=== PATIENT | female | born 1940 | race Caucasian/White ===

== ENCOUNTER 2016-06-10 13:57 | Outpatient (CLI) | payer MEDICARE, OTHER ==
[2015-09-03 06:37] VITALS: BP 110/70
--- NOTE | 2016-06-11 09:39 | OP Clinic Progress Note ---
REFERRING PHYSICIAN: Dr. Edu Coy REASON FOR VISIT: Marlene has had extensive workup with the chronic cough. It is mostly a daytime that does not seem to bother her at night. She has multiple other issues and on medications and has some degree of dementia. She is with her daughter today. We looked at her larynx with a flexible fiberoptic laryngoscope and the pachydermia laryngis, which is sometimes is suggestive of chronic reflux, looks about the same. Overall, there is no obvious danger in her larynx, hypopharynx , or supraglottic area. Symptomatically, when the dose of Elavil was increased from 10 mg to 25 mg, there has been a noticeable and a pleasant improvement in the degree of cough. There is overall less cough by the patient's history and by her daughter's acknowledgement. Another issue is that she may be taking anti-dementia medication from her neurologist. The metabolism of this may make the amount of medication that she would be taking difficult to evaluate. PLAN: I think from a clinical point of view it is fair to assume, in order to go forward, that the Elavil at 25 mg a day has been of benefit. She still takes it at night. She feels that taking it during the day there may be some increased dryness in her throat. The patient and her daughter accept as a decision for them to make whether to eliminate the Elavil by choosing to reduce the Elavil to 3 times a week and then twice a week and then to stop it or continue to take it. They feel like they would like to resume it if the cough seems to return. Most of these decisions and pathways are based upon her symptoms. The cough and balancing this off with the estimated improvement in cognition by the medications given by her neurologist and in addition, seeing whether she has some abdominal cramping that may be associated with the cognitive medication. The patient is welcome to return at any time. I am happy to review how to think about this. The standing diagnosis would be the cough is a neurogenic cough that has been improved with 25 mg of Elavil per day. This perspective can be altered in the amount of medication taken, and again, this is going to be balanced against the impression of whether it is better to stop the Elavil and begin taking the cognitive medication given by the neurologist. COMMENT: The patient is given an open prescription for Elavil 25 mg a day to be used with her and her daughter's discretion and the advise from Dr. Coy, in addition from the neurologist. cc: Dr. Edu QIU
== END 2016-06-10 14:00 ==
LOC: ENT 13:57
PROVIDERS: ATTEND Otolaryngology
DX: R05 Cough (principal)
CPT/HCPCS: 31575; G0463

== ENCOUNTER 2016-09-30 10:28 | Outpatient (CLI) | payer MEDICARE, OTHER ==
[2015-09-03 06:37] VITALS: BP 110/70
[2016-09-30 11:24] LABS: eGFR (African) > 60; eGFR (Non-African) > 60
== END 2016-09-30 10:30 ==
LOC: LAB 10:28
PROVIDERS: ATTEND Family Medicine
DX: I10 Essential (primary) hypertension (principal); Z86.39 Personal history of other endocrine, nutritional and metabolic disease
CPT/HCPCS: 36415; 80053; 80061

== ENCOUNTER 2017-01-18 13:31 | Outpatient (CLI) | payer MEDICARE, OTHER ==
[2015-09-03 06:37] VITALS: BP 110/70
[2017-01-18] MEDS ORDERED: ALBUTEROL SULFATE 2.5 MG/3 ML AMPUL.NEB NEB ONE (13:50)
[2017-01-18 14:44] LABS: ABG BASE EXCESS 5.4 (-2 - +2); ABG PH 7.49 (7.35-7.45)
--- NOTE | 2017-01-18 15:01 | Diagnostic Imaging Report ---
SUNITHA SIMMONS [facility] [address] [facility], [facility] [address] Report Submission Date: Jan 18, 2017 2:27:58 PM CDT Patient Study Name: ZENON OBRIEN Date: Jan 18, 2017 1:37:13 PM CDT Modality Type: CR Gender: F Description: CHEST : 36 Institution: [facility] Physician: SUNITHA SIMMONS Examination: PA and lateral chest. History: Evaluate lung ha. Comparison exam: None available Findings: PA lateral chest demonstrate a normal cardiac silhouette. Tortuosity of the thoracic aorta. Parenchymal fullness involving the right inferior hilum. No peripheral consolidation. No blunting of the costophrenic margins. Presumed granuloma left mid to lower lung. Osseous structures are appropriate for age. Impression: Right hilar fullness and left lower lung granuloma. Correlation with older studies recommended when available. Electronically signed on Jan 18, 2017 2:27:58 PM CDT by: Avery QIU
== END 2017-01-18 13:32 ==
LOC: RT 13:31
PROVIDERS: ATTEND Family Medicine
DX: J45.909 Unspecified asthma, uncomplicated (principal)
CPT/HCPCS: 36600; 71020; 82803; 94060

== ENCOUNTER 2017-01-29 13:38 | Outpatient (CLI) | payer MEDICARE, OTHER ==
[2015-09-03 06:37] VITALS: BP 110/70
[2017-01-29 14:24] LABS: eGFR (African) > 60; eGFR (Non-African) > 60
== END 2017-01-29 13:40 ==
LOC: LAB 13:38
PROVIDERS: ATTEND Family Medicine
DX: R25.2 Cramp and spasm (principal)
CPT/HCPCS: 36415; 80053

== ENCOUNTER 2017-02-11 11:06 | Outpatient (CLI) | payer MEDICARE, OTHER ==
[2015-09-03 06:37] VITALS: BP 110/70
== END 2017-02-11 11:07 ==
LOC: LAB 11:06
PROVIDERS: ATTEND Physician Assistant
DX: R30.0 Dysuria (principal)
CPT/HCPCS: 87086

== ENCOUNTER 2017-02-23 07:56 | Outpatient (CLI) | payer MEDICARE, OTHER ==
[2015-09-03 06:37] VITALS: BP 110/70
[2017-02-23 08:14] LABS: BASOPHILS % 0.7 (0.0-1.5); MEAN CORPUSCULAR HEMOGLOBIN 32.6 pg (28.0-34.0); MEAN CORPUSCULAR VOLUME 88.2 fl (80.0-100.0); MONOCYTES % 6.1 % (0.0-11.0)
[2017-02-23 08:54] LABS: eGFR (African) > 60; eGFR (Non-African) > 60
--- NOTE | 2017-02-23 14:21 | Diagnostic Imaging Report ---
SUNITHA SIMMONS [facility] [address] [facility].[address] [address] Report Submission Date: Feb 23, 2017 8:51:56 AM CDT Patient Study Name: ZENON OBRIEN Date: Feb 23, 2017 8:14:49 AM CDT Modality Type: US Gender: F Description: US ABD LIMITED : 36 Institution: [facility] Physician: SUNITHA SIMMONS Examination: Ultrasound gallbladder History: Epigastric discomfort Findings: No gallbladder visualized. Common bile duct measures 6.5 mm. No intrahepatic biliary dilation. Liver demonstrates normal homogeneous echogenicity. No mass or cyst. Normal flow on color analysis. Normal Doppler waveforms. Right kidney measures 9.9 cm in length. No cortical mass or cyst. No hydronephrosis. Pancreatic region without gross irregularity. Impression: No gallbladder visualized. Mildly prominent common bile duct - though within normal limits for post cholecystectomy patient. Correlate with any pertinent medical history. Electronically signed on Feb 23, 2017 8:51:56 AM CDT by: Avery QIU
== END 2017-02-23 07:57 ==
LOC: RAD 07:56
PROVIDERS: ATTEND Family Medicine
DX: R10.11 Right upper quadrant pain (principal); R10.13 Epigastric pain
CPT/HCPCS: 36415; 76705; 80053; 83690; 85025

== ENCOUNTER 2017-03-19 11:52 | Outpatient (CLI) | payer MEDICARE, OTHER ==
[2015-09-03 06:37] VITALS: BP 110/70
--- NOTE | 2017-03-24 15:39 | CONSULTATION REPORT ---
REFERRING PHYSICIAN: Dr. Edu Coy CONSULTING PHYSICIAN: Maria Fernanda Ortega MD REASON FOR CONSULT: "To assess my asthma and obstructive sleep apnea." PROBLEM LIST: 1. Obstructive sleep apnea: Uses CPAP with 8 cm of water pressure nightly. 2. Asthma. 3. Osteoporosis. 4. Restless leg syndrome. 5. Dementia. 6. Significant alcohol use in the past. 7. Status post cholecystectomy. 8. Status post hysterectomy. 9. Status post appendectomy. 10. Status pos hernia repair. HISTORY OF PRESENT ILLNESS: This is a 77-year-old female accompanied by her daughter for an evaluation of her asthma and obstructive sleep apnea. Regarding her obstructive sleep apnea, patient likes using her CPAP. It is set at 8 cm of water. She uses it nightly for 7 to 8 hours. She feels that it definitely helps and she has no complaints of daytime sleepiness. Regarding her asthma, she has had it for quite a while, however, has never been hospitalized overnight. She has never been intubated and has never been in the intensive care unit. She is mainly not on prednisone. Last summer, she had only 1 significant exacerbation that required an ED visit and an outpatient prednisone taper. She controls her asthma mainly with inhalers, although states that she does not like the DuoNeb nebulizers and now uses Brovana and budesonide, which has been prescribed twice a day, although she admits she only uses it once a day. She has seen a high school drafting teacher in the past over at [place], [place], and she was referred to Pulmonary Rehab. She went only several times and then hurt her knee and chose never to return. She does not use tobacco and never has. She does have trouble with gastroesophageal reflux disease and definitely has postnasal drip. She does not have hemoptysis. She has not been on any antibiotics recently. There is no chest pain. No PND. No edema. Her weight has been stable. Appetite is good. Energy level fluctuates. She does, however, complain of an intermittent nonproductive cough and she denies any fever, chills, or sweats. Per her daughter, she has a significant alcohol history, however, that is in the past and she no longer drinks alcohol. She also has a new puppy at home which definitely has helped her activity level and her overall happiness and mental health. The puppy has not affected her asthma at all. MEDICATIONS: 1. Amlodipine 5 mg daily. 2. Methenamine hippurate 1 gram one-half tablet twice a day. 3. Sucralfate 1 gram at bedtime. 4. Loratadine 10 mg daily. 5. Montelukast 10 mg daily. 6. ASA 81 mg at bedtime. 7. Trazodone 100 mg at bedtime. 8. Namenda XR 14 mg at bedtime. 9. Donepezil 10 mg at bedtime. 10. Fosamax every Wednesday. 11. Ropinirole 2 mg at bedtime. 12. Citalopram 20 mg daily. 13. Brovana nebulizer daily. 14. Budesonide nebulizer daily. 15. Perfect Biotics. 16. Centrum Silver. 17. Calcium with D3 and K. 18. Albuterol inhaler p.r.n. 19. Benzonatate p.r.n. 20. Lomox for diarrhea p.r.n. ALLERGIES: Meperidine. SOCIAL HISTORY: She lives with her and came to the clinic with her daughter. FAMILY HISTORY: Please see [facility] intake form. REVIEW OF SYSTEMS: Please see HPI for pertinent review of systems, otherwise, please review the [facility] patient intake form. PHYSICAL EXAMINATION: GENERAL: This is a well-developed, well-nourished female in no acute distress speaking in full sentences. VITAL SIGNS: Height: 5 feet. Weight: 139 pounds. BP: 144/83, P: 68, R: 20, T: 96.9, oxygen saturation is 98% on room air. HEENT: Pupils are equal and reactive to light. Oropharynx is clear. No thrush. NECK: Supple. No lymphadenopathy. No axillary lymphadenopathy. LUNGS: Clear to auscultation. Normal excursion. CARDIAC: Rate and rhythm are regular. No murmur, rubs, or gallops. ABDOMEN: Soft and nontender. Positive bowel sounds. EXTREMITIES: No cyanosis, clubbing, or edema. NEUROLOGIC: Alert and oriented x3. Gait is normal. Grossly nonfocal. IMAGING: All imaging was independently reviewed by me personally. 1. Chest x-ray on 01-18-17: Left lung granuloma. Peribronchial cuffing. No infiltrates. Mild cardiomegaly. 2. Pulmonary function test on 01-18-17: FEC was 1.86 L, 83% of predicted; FEV1 was 1.66 L, 98% of predicted; FEV1/FVC was 0.78, no bronchial dilator response. Interpretation: Normal spirometry. LABORATORY VALUES: 1. ABG on 01-18-17: pH of 7.49, pCO2 of 38, pO2 of 70, oxygen saturation of 95% on room air. 2. Chemistries on 02-23-17: Sodium 135, potassium 3.7, chloride 101, carbon dioxide 26, BUN 17, creatinine 0.8, glucose 98, calcium 9.4, total bilirubin 0.4 , AST 19, ALT 26, alkaline phosphatase 55, total protein 6.8, albumin 3.8, lipase 189. 3. Hematology on 02-23-17: White blood cell count 5.9, hemoglobin 13.4, hematocrit 36.2, platelets 237,000. ASSESSMENT AND PLAN: PROBLEM #1: Asthma. Patient seems quite stable at this point from a pulmonary perspective. PFT's or actually spirometry are normal. Patient does use nebulizers, however, not as often as directed. She states she does not like them. I have explained that it would benefit her if she could do her Brovana and budesonide twice a day. PLAN: 1. Encourage use of nebulizers as described above. 2. I have encouraged if patient does not like Brovana to try to do budesonide twice a day. I have explained that budesonide is a steroid inhaler and would definitely be helpful for asthma. PROBLEM #2: Cough. Patient states this is not new. I reviewed the 3 most common causes of cough with the patient and her daughter including asthma, postnasal drip, and gastroesophageal reflux disease. PLAN: 1. Encourage the patient to use nebulizers as described above. 2. I discussed the use of a nasal spray, including a steroid nasal spray and possibly ipratropium and she prefers not to continue those at present. 3. Continue Loratadine for the postnasal drip. 4. Consider resuming pantoprazole. She has used that in the past for her gastroesophageal reflux disease. She will take this under advisement. PROBLEM #3: Pulmonary preventative medicine. Patient has already had her influenza vaccine and her Pneumonia vaccine both performed in 2017. PLAN: Return to clinic in 3 months. cc: Dr. Edu QIU
== END 2017-03-19 12:00 ==
LOC: PULMONARY 11:52
PROVIDERS: ATTEND Internal Medicine Pulmonary Disease
DX: J45.909 Unspecified asthma, uncomplicated (principal); R05 Cough; G47.33 Obstructive sleep apnea (adult) (pediatric)
CPT/HCPCS: 99213; G0463

== ENCOUNTER 2017-03-29 10:27 | Outpatient (CLI) | payer MEDICARE, OTHER ==
[2015-09-03 06:37] VITALS: BP 110/70
== END 2017-03-29 10:30 ==
LOC: LABRHC 10:27
PROVIDERS: ATTEND Physician Assistant
DX: R30.0 Dysuria (principal)
CPT/HCPCS: 87086

== ENCOUNTER 2017-04-15 10:32 | Emergency (ER) | payer MEDICARE, OTHER ==
--- NOTE | 2017-04-15 10:57 | ED Physician Documentation ---
General Adult - HISTORIAN Historian: patient - HPI Stated Complaint: wheezing Chief Complaint: General Adult Onset: hours Timing: still present Severity: moderate Further Comments: yes (Pt is a 77 yo female with cough, wheezing. Pt has hx asthma. Sx for 2 days. Pt has used home nebs.) - ROS CONST: no problems EYES/ENT: none CVS/RESP: cough, other (wheezing) GI/: none MS/SKIN/LYMPH: none - PAST HX Past History: asthma, other (GERD) Allergies/Adverse Reactions: Allergies Allergy/AdvReac Type Severity Reaction Status Date / Time meperidine HCl [From Demerol] AdvReac Nausea/Vomi Verified 04/15/17 11:01 ting Home Medications: Ambulatory Orders Medication Instructions Recorded Methenamine Hippurate 500 mg PO BID 08/31/15 Aspirin [Adult Low Dose Aspirin EC] 81 mg PO 2100 09/03/15 Memantine HCl [Namenda Xr] 14 mg PO DAILY 03/29/17 Pantoprazole Sodium [Protonix] 40 mg PO DAILY 04/15/17 - SOCIAL HX Smoking History: non-smoker - FAMILY HX Family History: No - VITAL SIGNS Vital Signs: Vital Signs Temp Pulse Resp BP Pulse Ox 110/70 09/03/15 07:58 - REVIEWED ASSESSMENTS Nursing Assessment Reviewed: Yes Vitals Reviewed: Yes Progress - Progress Progress: Duoneb HFN Pulmicort HFN Rx Azithromycin 250 mg. Take one daily for 4 days. Start on 04/16/17. Rx Robitussin AC (with codeine). Take 10 ml (two teaspoons) by mouth every 4 to 6 hrs as needed for cough. Prednisone 40 mg. Take one daily for 4 days. Start on 04/16/17. Continue home asthma medications. - EKG/XRAY/CT XRAY: chest (Stable examination. No acute pulmonary process.) General Adult Physical Exam - PHYSICAL EXAM GENERAL APPEARANCE: mild distress EENT: pharynx normal NECK: normal inspection, supple RESPIRATORY: no resp distress, wheezes, rhonchi, other (cough) CVS: reg rate & rhythm, heart sounds normal BACK: normal inspection, no CVA tenderness SKIN: warm/dry, normal color EXTREMITIES: non-tender, normal range of motion, no evidence of injury NEURO: oriented X3, motor nml, sensation nml Discharge Clincal Impression: bronchitis Referrals: Edu Coy MD [Primary Care Provider] - Condition: Good Disposition: 01 HOME, SELF-CARE Decision to Admit: NO Decision Time: 12:00
[2017-04-15] MEDS: IPRATROPIUM/ALBUTEROL SULFATE 3 ML AMPUL.NEB NEB ONE (11:02)
[2017-04-15] MEDS: BUDESONIDE 0.5MG/2ML AMPUL.NEB NEB ONE (11:10)
[2017-04-15] MEDS ORDERED: IPRATROPIUM/ALBUTEROL SULFATE 3 ML AMPUL.NEB NEB ONE (11:11)
[2017-04-15] MEDS ORDERED: BUDESONIDE 0.5MG/2ML AMPUL.NEB NEB ONE (11:12)
[2017-04-15 11:15] LABS: BASOPHILS % 0.7 (0.0-1.5); EOSINOPHILS % 1.6 % (0.0-6.8); MEAN CORPUSCULAR HEMOGLOBIN 32.1 pg (28.0-34.0); MONOCYTES % 6.4 % (0.0-11.0); NEUTROPHILS # 2.9 # k/uL (1.4-7.7)
[2017-04-15 11:20] LABS: eGFR (African) > 60; eGFR (Non-African) > 60
[2017-04-15] MEDS ORDERED: AZITHROMYCIN 250 MG TABLET PO ONE (11:39)
[2017-04-15] MEDS ORDERED: CODEINE PO ONE ×2 (11:40→11:41)
[2017-04-15] MEDS ORDERED: GUAIFENESIN PO ONE ×2 (11:40→11:41)
[2017-04-15] MEDS ORDERED: predniSONE 20 MG TABLET PO ONE (11:42)
[2017-04-15 12:11] VITALS: BP 136/79
--- NOTE | 2017-04-15 16:14 | Diagnostic Imaging Report ---
JOSH MARRERO [facility] [address] [facility] [address] [place] [address]. [id number] Report Submission Date: Apr 15, 2017 11:46:56 AM GLUE REEL OPERATOR Patient Study Name: ZENON OBRIEN Date: Apr 15, 2017 11:27:03 AM GLUE REEL OPERATOR Modality Type: CR Gender: F Description: CHEST : 36 Institution: [facility] Physician: JOSH MARRERO Examination: PA and lateral chest. History: Evaluate lung ha. Comparison exam: 18 January 2017 Findings: PA lateral chest demonstrate a normal cardiac and mediastinal silhouette. Stable right hilar fullness. No focal infiltrate. No blunting of the costophrenic margins. Stable left midlung granuloma. Osseous structures are appropriate for age. Impression: Stable examination. No acute pulmonary process. Electronically signed on Apr 15, 2017 11:46:56 AM GLUE REEL OPERATOR by: Avery QIU
== END 2017-04-15 12:05 | disposition home or self-care (01) ==
LOC: ED 10:32
DX: J40 Bronchitis, not specified as acute or chronic (principal)
CPT/HCPCS: 71020; 80053; 83880; 85025; J7626; 99283; S1016

== ENCOUNTER 2017-05-11 15:27 | Outpatient (CLI) | payer MEDICARE, OTHER | END 2017-05-11 15:30 | LOC: POD 15:27 | PROVIDERS: ATTEND Podiatrist | DX: L60.0 Ingrowing nail (principal); B35.1 Tinea unguium | CPT/HCPCS: G0463 ==

== ENCOUNTER 2017-06-04 13:22 | Outpatient (CLI) | payer MEDICARE, OTHER ==
--- NOTE | 2017-06-10 12:29 | OP Clinic Progress Note ---
PRIMARY CARE PROVIDER: Dr. Edu Coy CHIEF COMPLAINT: "I still am having trouble with cough and shortness of breath." SIGNIFICANT PROBLEM LIST: 1. Obstructive sleep apnea: Uses a CPAP with 8 cm of water pressure nightly. 2. Asthma. 3. Osteoporosis. 4. Restless leg syndrome. 5. Dementia. 6. Significant alcohol use in the past. 7. Status post cholecystectomy. 8. Status post hysterectomy. 9. Status post appendectomy. 10. Status post hernia repair. HISTORY OF PRESENT ILLNESS: Patient is here in the office with her . She claims that she became short of breath and went to the emergency department on April 15, 2017. They treated her with antibiotics and steroids. Patient had a follow up visit on April 19, 2017. On the followup, she saw a nurse practitioner who just added Mucinex to her regimen. Today, she is complaining of shortness of breath. Her cough is worse with sputum productive of thick, cloudy material. She did have a flu shot. Currently, no one is sick at home. She denies any flu symptoms such as fever, headaches, or myalgias and does freely admit she does not always use her nebulizers as instructed. ALLERGIES: Meperidine. MEDICATIONS: 1. Amlodipine 5 mg daily. 2. Methenamine hippurate 1 gram one-half tablet b.i.d. 3. Sucralfate 1 gram at bedtime. 4. Loratadine 10 mg daily. 5. Montelukast 10 mg daily. 6. ASA 81 mg daily. 7. Trazodone 100 mg at bedtime. 8. Namenda XR 14 mg at bedtime. 9. Donepezil 10 mg at bedtime. 10. Fosamax every Wednesday. 11. Ropinirole 2 mg at bedtime. 12. Citalopram 20 mg daily. 13. Budesonide 0.5 mg daily. 14. Albuterol inhaler p.r.n. 15. Benzonatate p.r.n. 16. DuoNeb: Although I am unclear if this is what she has at home. PHYSICAL EXAMINATION: Vital Signs: BP: 136/66, P: 69, R: 22, T: 96.7, oxygen saturation 97% on room air. Weight: 135 pounds. General: This is a well-developed, well-nourished female in no acute distress speaking in full sentences. HEENT: Pupils are equal and reactive. Oropharynx is clear. No thrush. Lungs: Good bilateral air excursion. No wheezes, rhonchi, or rales. No tactile fremitus. Cardiac: Rate and rhythm are regular. S1, S2 without S3 and S4. No murmurs, rubs, or gallops. Abdomen: Positive bowel sounds. Soft and nontender. Extremities: No cyanosis, clubbing, or edema. Neurologic: Alert and oriented x3. Grossly nonfocal exam. IMAGING: All imaging was independently reviewed by me personally. Chest x-ray on April 15, 2017. Clear lung ha. Left mid-lung granuloma. LABORATORIES: Lab done April 15, 2017, showed a hemoglobin of 13, hematocrit of 37, white blood cell count of 5, platelets 279,000. ASSESSMENT AND PLAN: PROBLEM #1: Asthma. Patient continues to have a mild exacerbation. Patient feels that she is not at her baseline at present, however, admits to not always using her nebulizer as directed and is unclear on the type of nebulizers used. Albeit, I think along with the budesonide, she is using DuoNeb. PLAN: 1. Prednisone taper: This will be a longer taper. This taper will occur slowly over 21 days. 2. Azithromycin 500 mg p.o. daily x3 days. 3. Arformoterol 15 mcg via nebulizer b.i.d. 4. Patient to bring all medicines in a bag on next visit. PROBLEM #2: Obstructive sleep apnea. Patient is very compliant with her CPAP and there are no issues at present. PLAN: Continue to use CPAP as directed. cc: Dr. Edu QIU
== END 2017-06-04 13:23 ==
LOC: PULMONARY 13:22
PROVIDERS: ATTEND Internal Medicine Pulmonary Disease
DX: J45.909 Unspecified asthma, uncomplicated (principal); G47.30 Sleep apnea, unspecified; M81.0 Age-related osteoporosis without current pathological fracture; G25.81 Restless legs syndrome; F03.90 Unspecified dementia, unspecified severity, without behavioral disturbance, psychotic disturbance, mood disturbance, and anxiety
CPT/HCPCS: 99214; G0463

== ENCOUNTER 2017-07-02 11:03 | Outpatient (CLI) | payer MEDICARE, OTHER ==
--- NOTE | 2017-07-13 10:38 | OP Clinic Progress Note ---
PRIMARY CARE PROVIDER: Dr. Edu Coy CHIEF COMPLAINT: "My breathing is improved, although I still have some thick sputum." SIGNIFICANT PROBLEM LIST: 1. Obstructive sleep apnea: CPAP at 8 cm of water pressure. 2. Asthma. 3. Osteoporosis. 4. Restless leg syndrome. 5. Dementia. 6. 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 7. Significant alcohol use in the past. 8. Status post cholecystectomy. 9. Status hysterectomy. 10. Status post appendectomy. 11. Status post hernia repair. SUBJECTIVE: Patient returns with her . She has taken the slow prednisone taper that prescribed a month ago and also completed her azithromycin. She feels that she is better, although still with occasional production of thick sputum. Thus far, the formoterol nebulizer that I ordered has not been delivered yet. Her also thinks that the patient's breathing is much better. She also had a sore tooth and was given amoxicillin and developed diarrhea, which she was very concerned about due to her past history of severe Clostridium difficile diarrhea. The diarrhea has resolved, and she has seen a dentist for her tooth. The patient did bring in her medicines as requested except not her nebulized medicines. PRESENT MEDICATIONS: 1. Multivitamin 1 tablet daily. 2. Methenamine 500 mg b.i.d. 3. Trazodone 100 mg daily. 4. Citalopram 20 mg daily. 5. Sucralfate 1 gram daily. 6. Aspirin 81 mg daily. 7. Carbidopa/levodopa 10/100 mg daily. 8. Namenda 14 mg daily. 9. Montelukast 10 mg daily. 10. Donepezil 10 mg daily. 11. [id number] allergy pill daily. 12. Budesonide nebulizer 0.5 mg via nebulizer b.i.d. 13. Possibly DuoNeb via nebulizer. ALLERGIES: Meperidine. PHYSICAL EXAMINATION: VITAL SIGNS: BP: 142/75, P: 71, T: 97.2, room air oxygen saturation was 96%. GENERAL: This is a well-developed, well-nourished female in no acute distress speaking in full sentences. HEENT: Pupils are equal and reactive to light. Oropharynx is clear. No thrush. No erythema. NECK: Supple. No adenopathy. No JVD. LUNGS: Clear to auscultation. No crackles. No wheezes. Good bilateral air excursion. No tactile fremitus. CARDIAC: Rate and rhythm are regular. No murmur, rubs, or gallops. S1, S2. No S3 or S4. ABDOMEN: Soft and nontender. EXTREMITIES: No cyanosis, clubbing, or edema. NEUROLOGIC: Alert and oriented x3. Grossly nonfocal exam. IMAGING: The imaging was independently reviewed by myself personally. 1. Barium swallow on March 03, 2016: Normal. 2. Polysomnography on March 02, 2015: AHI was 28. Minimum oxygen saturation was 84.5%. Adequately treated with 8 of CPAP. ASSESSMENT AND PLAN: PROBLEM #1: Asthma, currently under control. The patient is using her nebulizers, although I am still unclear which ones she is using. She has also not yet received the formoterol nebulizer. Her insurance company denies arformoterol and wants her to use formoterol, which I have written for. PLAN: 1. Formoterol 20 mcg via nebulizer b.i.d. 2. Continue budesonide 0.5 mg via nebulizer. 3. Continue montelukast daily. 4. Patient to bring in the individual vials of nebulized medication for me to assess. PROBLEM #2: Obstructive sleep apnea. Patient continues to wear her CPAP nightly and is doing very well with it. Her sleep study was reviewed per description under the imaging. PLAN: 1. Continue to use the CPAP at 8 cm of water pressure. 2. Return in 3 months. cc: Dr. Edu QIU
== END 2017-07-02 11:04 ==
LOC: PULMONARY 11:03
PROVIDERS: ATTEND Internal Medicine Pulmonary Disease
DX: J44.9 Chronic obstructive pulmonary disease, unspecified (principal); J45.909 Unspecified asthma, uncomplicated; M81.0 Age-related osteoporosis without current pathological fracture; G25.81 Restless legs syndrome; F03.90 Unspecified dementia, unspecified severity, without behavioral disturbance, psychotic disturbance, mood disturbance, and anxiety
CPT/HCPCS: 99213; G0463

== ENCOUNTER 2017-07-13 13:58 | Outpatient (CLI) | payer MEDICARE, OTHER | END 2017-07-13 14:00 | LOC: POD 13:58 | PROVIDERS: ATTEND Podiatrist ==

== ENCOUNTER 2017-07-13 14:01 | Outpatient (CLI) | payer MEDICARE, OTHER ==
[2017-07-14 10:27] LABS: C. DIFFICILE (TOXIN A/B) Not Detected (Not Detected)
[2017-07-14 10:28] LABS: ADENOVIRUS F 40/41 Not Detected (Not Detected); ASTROVIRUS Not Detected (Not Detected); CRYPTOSPORIDIUM Not Detected (Not Detected); CYCLOSPORA CAYETANENSIS Not Detected (Not Detected); ENTAMOEBA HISTOLYTICA Not Detected (Not Detected); GIARDIA LAMBLIA Not Detected (Not Detected); ROTAVIRUS A Not Detected (Not Detected); SAPOVIRUS Not Detected (Not Detected); VIBRIO CHOLERAE Not Detected (Not Detected)
== END 2017-07-13 14:02 ==
LOC: LAB 14:01
PROVIDERS: ATTEND Family Medicine
DX: R19.7 Diarrhea, unspecified (principal)
CPT/HCPCS: 87507

== ENCOUNTER 2017-07-16 13:05 | Outpatient (CLI) | payer MEDICARE, OTHER | END 2017-07-16 13:06 | LOC: POD 13:05 | PROVIDERS: ATTEND Podiatrist | DX: B35.1 Tinea unguium (principal); M79.674 Pain in right toe(s); M79.675 Pain in left toe(s) | CPT/HCPCS: 11720; G0463 ==

== ENCOUNTER 2017-09-17 13:00 | Outpatient (CLI) | payer MEDICARE, OTHER ==
--- NOTE | 2017-09-28 13:33 | OP Clinic Progress Note ---
PRIMARY CARE PROVIDER: Dr. Edu Coy CHIEF COMPLAINT: "I still have some trouble with a cough." SIGNIFICANT PROBLEM LIST: 1. Obstructive sleep apnea: CPAP at 8 cm of water pressure. 2. Asthma. 3. Osteoporosis. 4. Restless leg syndrome. 5. Dementia. 6. 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 7. Significant alcohol use in the past. 8. Status post cholecystectomy. 9. Status post hysterectomy. 10. Status post appendectomy. 11. Status post hernia repair. HISTORY OF PRESENT ILLNESS: This is a 77-year-old female who returns to the Pulmonary Clinic with her daughter. The daughter has not been with her on the last several visits. At the beginning of August, on August 25, 2017, patient complained of a cough and saw her primary care provider where she had several prednisone tapers and also a dose of Depo Medrol 80 mg IM x1. On September 08, 2017, she returned again to Dr. Coy with a cough and fever and complained of frontal pressure and had a diagnosis of sinus congestion and patient was treated with Augmentin. She states now that she is better. Her cough is improved and her breathing is acceptable. She did bring in her nebulizer vials of medicine which indeed she is taking formoterol (Perforomist) and budesonide (Pulmicort). Her daughter is concerned regarding Perforomist. She feels her mother coughs too much when taking this and wondered why she was not on Brovana. I explained that on June 16, 2017, I did prescribe Brovana, also known as arformoterol, and Medicare denied it and said that Brovana was not covered and that the patient needed to take Perforomist. The daughter acknowledged this but says maybe she can get the Brovana through [facility] and not through Medicare. Regarding her sinus congestion, patient states she feels much better when taking daily Mucinex. She does also take an [id number] antihistamine. She is unclear what the name is and does not think it helps her very much. Regarding her obstructive sleep apnea, she is doing well using her CPAP as recommended. I have reviewed the records from . ALLERGIES: Meperidine. MEDICATIONS: 1. Multivitamin 1 tablet daily. 2. Methenamine 500 mg b.i.d. 3. Trazodone 100 mg daily. 4. Citalopram 20 mg daily. 5. Sucralfate 1 gram daily. 6. Aspirin 81 mg daily. 7. Carbidopa/levodopa 10/100 mg daily. 8. Namenda 14 mg daily. 9. Montelukast 10 mg daily. 10. Donepezil 10 mg daily. 11. [id number] allergy pill daily. (Name and dose unknown). 12. Budesonide 0.5 mg via nebulizer b.i.d. 13. Formoterol 20 mcg via nebulizer b.i.d. 14. Amlodipine 5 mg daily. PHYSICAL EXAMINATION: GENERAL: This is a well-developed, well-nourished female in no acute distress speaking in full sentences. VITAL SIGNS: BP: 147/75, P: 80, R: 22, T: 98.1, oxygen saturation is 96% on room air. Height: 5 feet. Weight: 135 pounds. HEENT: Pupils are equal and reactive to light. Oropharynx is clear. No thrush. No erythema. LUNGS: Good bilateral breath sounds. No wheezes, crackles, or rhonchi. CARDIAC: Rate and rhythm are regular. No murmur, rubs, or gallops. ABDOMEN: Soft and nontender. EXTREMITIES: No cyanosis, clubbing, or edema. NEUROLOGIC: Alert and oriented x3. Grossly nonfocal exam. ASSESSMENT/PLAN: PROBLEM #1: Asthma, currently under control using Perforomist (formoterol) and Pulmicort (budesonide). Her daughter has expressed concern that the Perforomist makes her cough more. The daughter had a discussion and I said I am happy to prescribe Brovana or whatever she feels is appropriate for their insurance and finances. The daughter can just contact me and let me know. PLAN: 1. Continue formoterol 20 mcg via nebulizer b.i.d. 2. Continue budesonide 0.5 mg via nebulizer b.i.d. 3. Continue Montelukast daily. 4. Daughter to decide if she wants to change the long-acting beta-agonist. PROBLEM #2: Sinus congestion. Patient doing adequately using her Mucinex; however, I reviewed with her and her daughter the 3 [id number] non-sedating antihistamines. I gave them a list and also suggested fluticasone nasal spray. PLAN: 1. Consider using one of the [id number] non-sedating antihistamines, for example, Stormy. 2. Fluticasone nasal spray also can be obtained over the counter. PROBLEM #3: Obstructive sleep apnea. The patient continues to do well wearing her CPAP and feels rested during the day. PLAN: 1. Continue to use CPAP at 8 cm of water pressure. 2. Return to clinic in 3 months. cc: Dr. Edu QIU
== END 2017-09-17 13:02 ==
LOC: PULMONARY 13:00
PROVIDERS: ATTEND Internal Medicine Pulmonary Disease
DX: J45.909 Unspecified asthma, uncomplicated (principal); R09.81 Nasal congestion; G47.33 Obstructive sleep apnea (adult) (pediatric); M81.0 Age-related osteoporosis without current pathological fracture; F03.90 Unspecified dementia, unspecified severity, without behavioral disturbance, psychotic disturbance, mood disturbance, and anxiety; G25.81 Restless legs syndrome
CPT/HCPCS: 99214; G0463

== ENCOUNTER 2017-12-03 14:27 | Outpatient (CLI) | payer MEDICARE, OTHER ==
--- NOTE | 2017-12-13 17:01 | OP Clinic Progress Note ---
PRIMARY CARE PROVIDER: Dr. Edu Coy CHIEF COMPLAINT: "I am feeling well." SIGNIFICANT PROBLEM LIST: 1. Obstructive sleep apnea: CPAP at 8 cm of water pressure. 2. Asthma. 3. Osteoporosis. 4. Restless leg syndrome. 5. Dementia. 6. 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 7. Significant alcohol use in the past. 8. Status post cholecystectomy. 9. Status post hysterectomy. 10. Status post appendectomy. 11. Status post hernia repair. HISTORY OF PRESENT ILLNESS: This is a 77-year-old female who returns for follow up with her daughter. Patient states she is doing very well using her nebulized formoterol and budesonide without problems. She states she does not have any cough and denies shortness of breath. Her daughter agrees. They are going on a cruise to [place] in January and want to know if I have any suggestions for there. ALLERGIES: Meperidine. MEDICATIONS: 1. Multivitamin 1 tablet daily. 2. Methenamine 500 mg b.i.d. 3. Trazodone 100 mg daily. 4. Citalopram 20 mg daily. 5. Sucralfate 1 gram daily. 6. Aspirin 81 mg daily. 7. Carbidopa/levodopa 10/100 mg daily. 8. Namenda 14 mg daily. 9. Montelukast 10 mg daily. 10. Donepezil 10 mg daily. 11. Claritin 10 mg daily. 12. Budesonide 0.5 mg via nebulizer b.i.d. 13. Formoterol 20 mcg via nebulizer b.i.d. 14. Amlodipine 5 mg daily. PHYSICAL EXAMINATION: VITAL SIGNS: BP: 138/58, P: 71, R: 20, T: 97.1, oxygen saturation is 97% on room air. Weight: 131 pounds (decrease of 4 pounds since last visit). GENERAL: This is a well-developed, well-nourished female in no acute distress speaking in full sentences. HEENT: Pupils are equal and reactive to light. Oropharynx is clear. No thrush. No erythema. NECK: Supple. No lymphadenopathy. LUNGS: Good bilateral air excursion. Clear. No wheezes. No rhonchi. CARDIAC: Rate and rhythm are regular. No murmur, rubs, or gallops. ABDOMEN: Soft and nontender. EXTREMITIES: No edema. NEUROLOGIC: Alert and oriented x3. Grossly nonfocal. ASSESSMENT AND PLAN: PROBLEM #1: Asthma. Currently under control with her current medications. She is expressing some anxiety going on the cruise to [place] with her daughter in case she gets sick. Daughter states that there is a physician and infirmary on board the ship. PLAN: 1. Continue formoterol 20 mcg via nebulizer b.i.d. 2. Continue budesonide 0.5 mg via nebulizer b.i.d. 3. Continue montelukast daily. 4. Patient instructed to bring nebulizer and all her appropriate medications with her on her cruise. 5. I have written out a long slow prednisone taper that they will get filled and bring with them on the cruise in case there are any problems. PROBLEM #2: Sinus congestion. Again, currently patient is doing well. Patient did start using Claritin 10 mg without any problems. PLAN: 1. Claritin 10 mg daily. 2. Fluticasone nasal spray as needed. PROBLEM #3: Obstructive sleep apnea. The patient continues to do well using her CPAP. PLAN: 1. Continue to use CPAP at 8 cm of water pressure. 2. Patient to bring CPAP on her cruise to [place]. 3. Return to clinic in late February/March per patient request. cc: Dr. Edu QIU
== END 2017-12-03 14:32 ==
LOC: PULMONARY 14:27
PROVIDERS: ATTEND Internal Medicine Pulmonary Disease
DX: J45.909 Unspecified asthma, uncomplicated (principal); R09.81 Nasal congestion; G47.33 Obstructive sleep apnea (adult) (pediatric)
CPT/HCPCS: 99214; G0463

== ENCOUNTER 2018-02-28 14:54 | Outpatient (CLI) | payer MEDICARE, OTHER ==
--- NOTE | 2018-02-28 17:20 | Diagnostic Imaging Report ---
JACK CHILD [facility] [id number] [facility].[address] [address] Report Submission Date: Feb 28, 2018 5:19:02 PM CDT Patient Study Name: ZENON OBRIEN Date: Feb 28, 2018 2:56:24 PM CDT Modality Type: DX Gender: F Description: CHEST : 36 Institution: [facility] Physician: JACK CHILD Examination: PA and lateral chest. History: Evaluate lung ha. ASTHMA AND COUGH X1 WEEK (Hx) Comparison exam: None provided. Findings: PA and lateral views of the chest demonstrates a normal cardiac and mediastinal silhouette. Tortuous aorta with vascular calcifications involving aortic arch. No focal infiltrate. No blunting of the costophrenic margins. Left lung granuloma. Osseous structures are appropriate for age. Impression: No acute appearing pulmonary process. Electronically signed on Feb 28, 2018 5:19:02 PM CDT by: Avery QIU
== END 2018-02-28 14:56 ==
LOC: RAD 14:54
PROVIDERS: ATTEND Family Medicine
DX: R05 Cough (principal)
CPT/HCPCS: 71046

== ENCOUNTER 2018-04-01 15:30 | Emergency (ER) | payer MEDICARE, OTHER ==
[2018-04-01] MEDS ORDERED: IPRATROPIUM/ALBUTEROL SULFATE 3 ML AMPUL.NEB NEB ONE (15:59)
[2018-04-01] MEDS ORDERED: methylPREDNISolone SOD SUCC 125 MG/2 ML VIAL IM ONE (16:01)
[2018-04-01] MEDS ORDERED: Lidocaine 1% 5ml(IM or SUTURE)(PAIN CLINIC) IJ ONE (16:01)
--- NOTE | 2018-04-01 16:06 | ED Physician Documentation ---
Upper Respiratory Symptoms - HPI Stated Complaint: cough/congestion Chief Complaint: Cough/ Upper Respiratory Additional Information: Patient presents to ED with a 4-6 week of cough. She states she traveled to [place] via cruise ship. While she was there the smog was terrible. Since that time she has had a productive cough with green/yellow sputum production. She denies fever. Onset: days ago (21) Duration: intermittent episodes Context: recent foreign travel ([place]) Severity: moderate Associated Symptoms: denies: fever, chills, runny nose, sinus drainage, sore throat - ROS CONST/EYES: denies: weakness CVS/RESP: denies: chest pain, shortness of breath LYMPH: denies: ankle swelling GI/: denies: abdominal pain NEURO/PSYCH: denies: dizziness MS/SKIN: denies: muscle aches, rash - PAST HX Lung Disease: COPD PE Risk Factors: none Surgeries/Procedures: denies: cardiac bypass Allergies/Adverse Reactions: Allergies Allergy/AdvReac Type Severity Reaction Status Date / Time meperidine HCl [From Demerol] AdvReac Nausea/Vomi Verified 04/01/18 15:47 ting Home Medications: Ambulatory Orders Medication Instructions Recorded Memantine HCl [Namenda Xr] 14 mg PO DAILY 03/29/17 Cefdinir 300 mg PO BID #20 capsule 04/01/18 Montelukast Sodium [Singulair] 10 mg PO HS #30 tablet 04/01/18 predniSONE [Deltasone] 20 mg PO DIRECTED #13 tablet 04/01/18 - SOCIAL HX Smoking History: non-smoker Alcohol Use: none Drug Use: none - FAMILY HX Family History: none - VITAL SIGNS Vital Signs: Vital Signs Temp Pulse Resp BP Pulse Ox 97.6 F 82 16 134/76 100 04/01/18 16:45 04/01/18 16:45 04/01/18 16:45 04/01/18 16:45 04/01/18 16:45 - REVIEWED ASSESSMENTS Nursing Assessment Reviewed: Yes Vitals Reviewed: Yes ED Results Lab/Radiology - Orders Orders: ED Orders Category Date Time Status Ipratropium/Albuterol Sulfate [Duoneb] Med 04/01/18 15:59 Discontinued 3 ml NEB NOW ONE Lidocaine 1% 5ml(IM or SUTURE) [Xylocaine] Med 04/01/18 16:01 Discontinued 50 mg IJ NOW ONE cefTRIAXone SODIUM [Rocephin] Med 04/01/18 16:01 Discontinued 500 mg IM NOW ONE methylPREDNISolone SOD SUCC [Solu-MEDROL] Med 04/01/18 16:01 Discontinued 125 mg IM NOW ONE Upper Respiratory Symptoms - EXAM General Appearance: no acute distress, alert Neck: normal inspection, supple Respiratory: wheezes (bibasilar) Abdomen: non-tender, nml bowel sounds CVS: reg rate & rhythm, heart sounds normal Skin: color nml, no rash Extremities: non-tender Neuro/Psych: oriented x3 Discharge Clincal Impression: COPD with acute exacerbation Prescriptions: Cefdinir 300 mg PO BID #20 capsule Montelukast Sodium [Singulair] 10 mg PO HS #30 tablet predniSONE [Deltasone] 20 mg PO DIRECTED #13 tablet Referrals: Edu Coy MD [Primary Care Provider] - 2 Days Additional Instructions: Take medications as directed. Singulair will prevent exacerbations if taken daily. Condition: Stable Disposition: 01 HOME, SELF-CARE Decision to Admit: NO Date of Decison to Admit: 04/01/18 Decision Time: 18:00
[2018-04-01 17:07] VITALS: BP 134/76
== END 2018-04-01 16:45 | disposition home or self-care (01) ==
LOC: ED 15:30
DX: J44.1 Chronic obstructive pulmonary disease with (acute) exacerbation (principal)
CPT/HCPCS: J0696; J2930; 94640; 96372; 99282; 99283

== ENCOUNTER 2019-01-16 15:51 | Outpatient (CLI) | payer MEDICARE, OTHER ==
[2019-01-16 16:19] LABS: BASOPHILS % 0.5 % (0.0-1.5)
[2019-01-16 16:20] LABS: NEUTROPHILS # 3.1 # k/uL (1.4-7.7)
[2019-01-16 16:57] LABS: eGFR (Non-African) > 60
== END 2019-01-16 15:53 ==
LOC: LAB 15:51
PROVIDERS: ATTEND Family Medicine
DX: I10 Essential (primary) hypertension (principal); R63.4 Abnormal weight loss; Z79.899 Other long term (current) drug therapy
CPT/HCPCS: 36415; 80053; 84443; 85025

== ENCOUNTER 2019-05-02 10:50 | Outpatient (CLI) | payer MEDICARE, OTHER | END 2019-05-02 10:55 | LOC: LAB 10:50 | PROVIDERS: ATTEND Podiatrist Foot & Ankle Surgery | DX: B35.1 Tinea unguium (principal) | CPT/HCPCS: 36415; 80076 ==